=== PATIENT | male | born 1975 | race American Indian/Alaskan Native ===

== ENCOUNTER 2020-08-10 12:37 | Outpatient (CLI) | payer OTHER ==
--- NOTE | 2020-08-10 13:49 | XRay Report ---
LUMBOSACRAL SPINE 3 VIEWS INDICATION: BACK PAIN. COMPARISON: None. IMPRESSION: Normal alignment. No significant discogenic DJD or facet arthropathy. No acute osseous or soft tissue abnormality. Signer Name: Luke Durant Jr, MD Signed: 08/10/2020 1:44 PM Workstation Name: [id number]
== END 2020-08-10 12:38 | disposition home or self-care (01) ==
LOC: XRAY 12:37
PROVIDERS: ATTEND Internal Medicine
DX: Z02.71 Encounter for disability determination (principal); I21.29 ST elevation (STEMI) myocardial infarction involving other sites; M54.5 Low back pain; F41.8 Other specified anxiety disorders; G44.89 Other headache syndrome
CPT/HCPCS: 72100